=== PATIENT | female | born 1995 | race Caucasian/White ===

== ENCOUNTER 2018-08-16 19:19 | Emergency (ER) | payer OTHER ==
[~2018-08-16] VITALS: Ht 170.2 cm; Wt 105.5 kg
[2018-08-16 19:23] VITALS: BP 151/69; TEMP 98.4
[2018-08-16 20:53] VITALS: PULSE 83
== END 2018-08-16 20:55 | disposition home or self-care (01) ==
LOC: COL.ER 19:19
DX: S70.11XA Contusion of right thigh, initial encounter (principal); E11.9 Type 2 diabetes mellitus without complications; V73.6XXA Passenger on bus injured in collision with car, pick-up truck or van in traffic accident, initial encounter

== ENCOUNTER 2018-10-03 20:51 | Emergency (ER) | payer OTHER ==
[~2018-10-03] VITALS: Ht 170.2 cm; Wt 104.5 kg
[2018-10-03 20:55] VITALS: BP 149/83; TEMP 98.1
[2018-10-03] MEDS ORDERED: LANTUS100 U/ML SQ (21:17)
[2018-10-03] MEDS ORDERED: HUMALOG100 U/ML (21:17)
[2018-10-03] MEDS ORDERED: CEPHALEXIN500 M1 PO (21:21)
[2018-10-03 21:30] VITALS: PULSE 88
== END 2018-10-03 21:30 | disposition home or self-care (01) ==
LOC: COL.ER 20:51
DX: L03.115 Cellulitis of right lower limb (principal); E11.9 Type 2 diabetes mellitus without complications; Z79.4 Long term (current) use of insulin

== ENCOUNTER → 2019-11-06 | Outpatient (CLI) | payer MEDICAID ==
[~2019-11-06] MED LIST: CEPHALEXIN500 M1 PO; HUMALOG100 U/ML; LANTUS100 U/ML SQ
[2019-11-06 16:39] LABS: COLLECTION METHOD CLEAN CATCH
[2019-11-06 16:52] LABS: MUCOUS Present /lpf; PH 6 (5-8); SQUAMOUS EPITHELIAL 0-2 /hpf; URINE APPEARANCE Clear; URINE BACTERIA None Seen /hpf; URINE BILIRUBIN Negative (NEGATIVE); URINE BLOOD Negative (NEGATIVE); URINE COLOR Yellow; URINE GLUCOSE 2+ (NEGATIVE); URINE KETONE Trace (NEGATIVE); URINE LEUKOCYTE ESTERASE Negative (NEGATIVE); URINE NITRATE Negative (NEGATIVE); URINE PROTEIN(semi-quant) Negative (NEGATIVE); URINE RBC 0-2 /hpf; URINE UROBILINOGEN Negative (NEGATIVE)
== END ==
LOC: COL.LAB 16:24
DX: R10.9 Unspecified abdominal pain (principal); R35.0 Frequency of micturition